=== PATIENT | female | born 1995 | race African-American/Black ===

== ENCOUNTER 2022-08-19 18:28 | Emergency (ER) | payer OTHER, SELFPAY ==
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
[2022-08-19 18:42] VITALS: BP 137/109; PULSE 67; RESP 16; TEMP 37.6; O2SAT 99
[2022-08-19] MEDS: SILVER SULFADIAZINE 1% CR 50 GM JAR (*BKC) 1 APPLIC TOPICAL (18:57)
== END 2022-08-19 19:19 | disposition home or self-care (01) ==
PROVIDERS: Emergency Provider Nurse Practitioner; PCP Family Medicine
DX: S30.1XXA Contusion of abdominal wall, initial encounter (principal); S40.022A Contusion of left upper arm, initial encounter; V49.40XA Driver injured in collision with unspecified motor vehicles in traffic accident, initial encounter; W22.11XA Striking against or struck by driver side automobile airbag, initial encounter
CPT/HCPCS: 99213; A9270; G0463